=== PATIENT | female | born 1965 | race Caucasian/White ===

== ENCOUNTER 2021-01-30 09:41 | Day surgery (SDC) | payer BC ==
[2021-01-27 10:39] LABS: BASOPHILS % (AUTO) 0.4 % (0.0-5.0); EOSINOPHILS % (AUTO) 1.2 % (0.0-8.0); HEMATOCRIT 45.4 % (36-48); LYMPHOCYTES % (AUTO) 26.5 % (21.0-51.0); MEAN CORPUSCULAR HEMOGLOBIN 29.9 pg (27.0-33.0); MEAN CORPUSCULAR HGB CONC 33.7 g/dL (32.0-36.0); MEAN CORPUSCULAR VOLUME 88.7 fL (79-99); NEUTROPHILS % (AUTO) 64.7 % (40.0-77.0); PLATELET COUNT (AUTO) 186 K/uL (130-400); RED BLOOD CELL COUNT(AUTO) 5.12 MIL/uL (4.00-5.50); RED CELL DISTRIBUTION WIDTH 12.7 % (11.0-15.5)
[2021-01-27 10:50] LABS: CREATININE 1.1 mg/dL (0.5-1.5); POTASSIUM 4.2 mmol/L (3.5-5.1)
[2021-01-27 12:08] VITALS: BP 148/72
[~2021-01-30] VITALS: Ht 162.6 cm; Wt 78.5 kg
[2021-01-30] VITALS (14 sets, daily range): BP systolic 104–125; BP diastolic 54–87
[~2021-01-30 09:41] MED LIST: AMLO-258 PO; ATOR10TA69 PO; ESOM20CA31 PO; IBUP-2077 PO; LISI5TAB21 PO; TYL2 PO
[2021-01-30] MEDS ORDERED: CEFAZOLIN SODIUM 1 GM VIAL ONE (09:51)
[2021-01-30] MEDS ORDERED: LACTATED RINGERS 1000ML 1,000 ML IV ONE (09:53)
[2021-01-30] MEDS ORDERED: MIDAZOLAM HCL 1 MG/ML 2ML VIAL ONE (10:15)
[2021-01-30] MEDS ORDERED: FENTANYL CITRATE PF 50 MCG/1 ML 2ML VIAL ONE ×2 (10:16→13:22)
[2021-01-30] MEDS ORDERED: PROPOFOL 10 MG/ML 20ML VIAL IV ONE (10:16)
[2021-01-30] MEDS ORDERED: DEXAMETHASONE SOD PHOSPHATE 10MG/ML 1ML VIAL ONE (10:18)
[2021-01-30] MEDS ORDERED: ONDANSETRON 4MG INJ ONE (10:19)
[2021-01-30] MEDS ORDERED: ROPIVACAINE 0.5% 5MG/ML 30ML IJ ONE (10:20)
[2021-01-30] MEDS ORDERED: CLINDAMYCIN IVPB 900MG/50ML 50 ML IV ONE (10:35)
[2021-01-30] MEDS ORDERED: BUPIVACAINE/PF 0.25% 30ML VIAL IJ ONE (12:54)
[2021-01-30] MEDS ORDERED: CLINDAMYCIN 900MG/6ML INJ ONE (13:32)
[2021-01-30] MEDS ORDERED: CLIN300C3 PO (14:44)
[2021-01-30] MEDS ORDERED: HYDR-4060 PO (14:44)
[2021-01-30] MEDS ORDERED: MEPERIDINE-PF 25 MG/ML SYG ONE ×2 (14:51→15:19)
== END 2021-01-30 16:40 | disposition home or self-care (01) ==
LOC: DAH 09:41
PROVIDERS: ATTEND Orthopaedic Surgery
DX: S52.572A Other intraarticular fracture of lower end of left radius, initial encounter for closed fracture (principal); Z20.822 Contact with and (suspected) exposure to COVID-19; I10 Essential (primary) hypertension; Z72.89 Other problems related to lifestyle; Z79.899 Other long term (current) drug therapy; Z98.891 History of uterine scar from previous surgery; Z98.890 Other specified postprocedural states; W19.XXXA Unspecified fall, initial encounter; Y93.89 Activity, other specified; Y92.89 Other specified places as the place of occurrence of the external cause
CPT/HCPCS: 25609; 36415; 73110; 80048; 85025; 87635; A4215; A4221; A4222; A4223; A4649 ×2; A4663; A4930; A6223; C1713 ×3; C1776; C9803; J1100; J2175 ×2; J2250; J2405; J2704; J2795; J3010 ×2; J3490 ×2; J7030; J7120; Q4051; J0690